=== PATIENT | male | born 1945 ===

== ENCOUNTER 2024-05-02 03:55 | Day surgery (SDC) | payer MEDICARE, OTHER ==
[2024-05-02] MEDS ORDERED: ACETAMINOPHEN 500 MG TABLET (FP) PO PRN (09:09)
[2024-05-02 10:45] VITALS: BMI 20.3
[2024-05-02] MEDS: LIDOCAINE HCL 1% PRESERVATIVE FREE - 30ML VIAL IJ ONE ×2 (12:56)
[2024-05-02] MEDS: IOHEXOL 180 MG/1 ML ML IJ ONE ×2 (12:59)
[2024-05-02] MEDS: DEXAMETHASONE SOD PHOSPHATE 10 MG/1 ML VIAL IM ONE ×3 (13:06)
[2024-05-02 13:25] VITALS: BP 143/74; PULSE 72; TEMP 97.8
[2024-05-02 13:56] VITALS: RESP 18
== END 2024-05-02 13:57 | disposition home or self-care (01) ==
LOC: JASU-SURG 03:55
PROVIDERS: ATTEND Pain Medicine Pain Medicine
PROC: 3E0R3BZ Introduction of Anesthetic Agent into Spinal Canal, Percutaneous Approach (ICD-10-PCS; 2024-05-02)
PROC: 3E0R33Z Introduction of Anti-inflammatory into Spinal Canal, Percutaneous Approach (ICD-10-PCS; principal; 2024-05-02 12:30)
DX: M54.16 Radiculopathy, lumbar region (principal)
CPT/HCPCS: 76000-TC-FY; J1100

== ENCOUNTER 2024-07-25 06:11 | Day surgery (SDC) | payer MEDICARE, OTHER ==
[2024-07-24 12:07] VITALS: BMI 20.3
[2024-07-25] MEDS ORDERED: LIDOCAINE HCL/PF 1% SDV 5ML VIAL ONE (07:31)
[2024-07-25] MEDS ORDERED: ACETAMINOPHEN 500 MG TABLET (FP) PO PRN (09:01)
[2024-07-25 12:28] VITALS: RESP 18
[2024-07-25] MEDS: LIDOCAINE HCL 1% PRESERVATIVE FREE - 30ML VIAL IJ ONE ×4 (13:50)
[2024-07-25 14:20] VITALS: BP 107/65; PULSE 79; TEMP 97.8
== END 2024-07-25 14:55 | disposition home or self-care (01) ==
LOC: JASU-SURG 06:11
PROVIDERS: ATTEND Pain Medicine Pain Medicine
PROC: 01HY3MZ Insertion of Neurostimulator Lead into Peripheral Nerve, Percutaneous Approach (ICD-10-PCS; principal; 2024-07-25 08:45)
DX: G89.4 Chronic pain syndrome (principal)
CPT/HCPCS: 64555; C1778

== ENCOUNTER 2024-08-22 06:02 | Day surgery (SDC) | payer MEDICARE, OTHER ==
[2024-08-22 07:40] VITALS: BMI 20.9
[2024-08-22 08:04] VITALS: RESP 20
[2024-08-22] MEDS ORDERED: ACETAMINOPHEN 500 MG TABLET (FP) PO PRN (08:46)
[2024-08-22] MEDS: LIDOCAINE HCL 1% PRESERVATIVE FREE - 30ML VIAL IJ ONE ×2 (09:20)
[2024-08-22 09:58] VITALS: BP 118/70; PULSE 98; TEMP 98
== END 2024-08-22 10:30 | disposition home or self-care (01) ==
LOC: JASU-SURG 06:02
PROVIDERS: ATTEND Pain Medicine Pain Medicine
PROC: 01HY3MZ Insertion of Neurostimulator Lead into Peripheral Nerve, Percutaneous Approach (ICD-10-PCS; principal; 2024-08-22 09:00)
DX: G89.4 Chronic pain syndrome (principal); M54.31 Sciatica, right side
CPT/HCPCS: 64555; C1778